=== PATIENT | male | born 1965 | race Caucasian/White ===

== ENCOUNTER 2020-09-17 07:01 | Emergency (ER) | payer OTHER ==
[2020-09-17 07:34] VITALS: TEMP 98.2; BMI 23.6
[2020-09-17] MEDS ORDERED: IBUPROFEN 400 MG TABLET (FP) PO ONE ×2 (08:12→08:14)
[2020-09-17 08:56] LABS: URINE APPEARANCE CLEAR; URINE BILIRUBIN NEGATIVE (NEGATIVE); URINE COLOR YELLOW; URINE GLUCOSE (UA) NEGATIVE (NEGATIVE); URINE KETONE NEGATIVE (NEGATIVE); URINE LEUK ESTERASE NEGATIVE (NEGATIVE); URINE NITRITE NEGATIVE (NEGATIVE); URINE PROTEIN NEGATIVE (NEGATIVE); URINE UROBILINOGEN 0.2 mg/dL (0.2-1.0)
[2020-09-17 09:19] LABS: HEMOGLOBIN 15.2 GM/dL (11.7-16.9); MCH 31.8 pg (25.7-33.7); MCHC 34.6 g/dl (32.0-35.9); MEAN CELL VOLUME 91.8 fl (80-96); MEAN PLT VOLUME 8.9 fl (7.5-11.1); PLATELET COUNT 243 10^3/uL (134-434); RBC 4.79 M/mm3 (4.00-5.60); RDW 14.2 % (11.9-15.9); WHITE BLOOD COUNT 7.3 K/mm3 (4.0-10.0)
[2020-09-17 09:41] LABS: CALCIUM 8.5 mg/dL (8.5-10.1)
[2020-09-17 09:42] LABS: BLOOD UREA NITROGEN 12.3 mg/dL (7-18)
[2020-09-17 09:45] LABS: CREATININE 0.9 mg/dL (0.55-1.3)
[2020-09-17 09:46] LABS: BILIRUBIN,TOTAL 0.6 mg/dL (0.2-1)
[2020-09-17 09:47] LABS: TOT PROT 7.5 g/dl (6.4-8.2)
[2020-09-17 12:15] VITALS: BP 100/53; PULSE 60
== END 2020-09-17 13:16 | disposition home or self-care (01) ==
LOC: JER 07:01
DX: R10.9 Unspecified abdominal pain (principal)
CPT/HCPCS: 36415; 74176-TC; 80053; 81003; 85027; 87086; 99284-25

== ENCOUNTER 2023-09-26 08:29 | Day surgery (SDC) | payer OTHER ==
[2023-09-23 15:24] VITALS: BMI 23.5
[2023-09-26] MEDS ORDERED: MIDAZOLAM HCL 2 MG/2 ML SINGLE DOSE VIAL ONE (10:13)
[2023-09-26] MEDS ORDERED: ROCURONIUM BROMIDE 50 MG/5 ML SYRINGE ONE (10:15)
[2023-09-26] MEDS ORDERED: ROPIVACAINE HCL/PF 100 MG/20 ML VIAL ONE (10:16)
[2023-09-26] MEDS ORDERED: ceFAZolin SODIUM 1 GM VIAL ONE (10:46)
[2023-09-26] MEDS ORDERED: TRANEXAMIC ACID 1000 MG/10 ML VIAL ONE (10:46)
[2023-09-26] MEDS ORDERED: KETOROLAC TROMETHAMINE 30 MG/1 ML VIAL ONE (10:46)
[2023-09-26] MEDS ORDERED: DEXAMETHASONE SOD PHOSPHATE 4 MG/1 ML VIAL ONE ×2 (10:46→10:50)
[2023-09-26] MEDS ORDERED: ONDANSETRON 4 MG/2 ML VIAL ONE (10:46)
[2023-09-26] MEDS ORDERED: VECURONIUM BROMIDE 10 MG/10 ML VIAL ONE (11:32)
[2023-09-26] MEDS ORDERED: SUGAMMADEX SODIUM 200 MG/2 ML VIAL ONE (11:45)
[2023-09-26] MEDS ORDERED: ONDANSETRON 4 MG/2 ML VIAL IVPUSH PRN (13:28)
[2023-09-26] MEDS ORDERED: PROMETHAZINE HCL 25 MG/1 ML VIAL IVPB PRN (13:28)
[2023-09-26] MEDS ORDERED: oxyCODONE HCL 5 MG TABLET PO PRN (13:28)
[2023-09-26] MEDS ORDERED: FENTANYL CITRATE/PF 50 MCG/ML VIAL ONE ×2 (13:34→13:46)
[2023-09-26] MEDS: oxyCODONE HCL 5 MG TABLET PO PRN (14:13)
[2023-09-26] MEDS: ACETAMINOPHEN 1000 MG/100 ML BAG IVPB ONE ×2 (14:21→14:22)
[2023-09-26 14:33] VITALS: RESP 18; TEMP 97.3
[2023-09-26 16:47] VITALS: BP 109/68; PULSE 71
== END 2023-09-26 16:49 | disposition home or self-care (01) ==
LOC: FASU 08:29
PROVIDERS: ATTEND Orthopaedic Surgery Sports Medicine
PROC: 0RBJ4ZZ Excision of Right Shoulder Joint, Percutaneous Endoscopic Approach (ICD-10-PCS; principal; 2023-09-26 10:59)
PROC: 0LS34ZZ Reposition Right Upper Arm Tendon, Percutaneous Endoscopic Approach (ICD-10-PCS; 2023-09-26 10:59)
PROC: 0RNJ4ZZ Release Right Shoulder Joint, Percutaneous Endoscopic Approach (ICD-10-PCS; 2023-09-26 10:59)
DX: M75.101 Unspecified rotator cuff tear or rupture of right shoulder, not specified as traumatic (principal); M75.01 Adhesive capsulitis of right shoulder; M75.21 Bicipital tendinitis, right shoulder
CPT/HCPCS: 82962; 94760; C1713; J0131

== ENCOUNTER 2024-07-06 06:47 | Emergency (ER) | payer OTHER ==
[2024-07-06 06:54] VITALS: BMI 24.3
[2024-07-06] MEDS ORDERED: ACETAMINOPHEN INJECTION 100 ML ONE (07:44)
[2024-07-06] MEDS ORDERED: ONDANSETRON 4 MG/2 ML VIAL ONE (07:44)
[2024-07-06] MEDS ORDERED: MAG HYDROX/AL HYDROX/SIMETH 30 ML UNIT-DOSE CUP ONE (07:44)
[2024-07-06] MEDS ORDERED: FAMOTIDINE 20 MG/50 ML IVPB 20 MG/50 ML MG IVPB ONE (07:44)
[2024-07-06] MEDS: ACETAMINOPHEN 1000 MG/100 ML BAG IVPB ONE (07:58)
[2024-07-06] MEDS: FAMOTIDINE 20 MG/50 ML IVPB 20 MG/50 ML MG IVPB ONE (07:58)
[2024-07-06] MEDS: MAG HYDROX/AL HYDROX/SIMETH 30 ML UNIT-DOSE CUP PO ONE (07:58)
[2024-07-06] MEDS: ONDANSETRON 4 MG/2 ML VIAL IVPUSH ONE (07:58)
[2024-07-06 08:09] LABS: ABSOLUTE IMMATURE GRANULOCYTES 0.02 x10^3/uL (0.0-0.031); BASOPHILS # 0.02 x10^3/uL (0.01-0.08); EOSINOPHIL % 1.7 % (0.8-7.0); HEMATOCRIT 46.2 % (40.1-51.0); HEMOGLOBIN 15.3 g/dL (13.7-17.5); MCHC 33.1 g/dl (32.3-36.5); MEAN CELL VOLUME 93.9 fl (79.0-92.2); MEAN PLT VOLUME 11.4 fl (9.4-12.4); MONOCYTE # 0.47 x10^3/uL (0.30-0.82); PLATELET COUNT 195 x10^3/uL (163-337); RDW 13.6 % (12.2-16.1)
[2024-07-06 08:13] LABS: PH,URINE 6.5 (5.0-8.0); URINE APPEARANCE CLEAR; URINE BILIRUBIN NEGATIVE (NEGATIVE); URINE COLOR YELLOW; URINE GLUCOSE (UA) NEGATIVE (NEGATIVE); URINE KETONE NEGATIVE (NEGATIVE); URINE LEUK ESTERASE NEGATIVE (NEGATIVE); URINE NITRITE NEGATIVE (NEGATIVE); URINE PROTEIN NEGATIVE (NEGATIVE); URINE UROBILINOGEN 0.2 mg/dL (0.2-1.0)
[2024-07-06 08:21] LABS: CHLORIDE 105 mmol/L (98-107); SODIUM 129 mmol/L (136-145)
[2024-07-06 08:23] LABS: CALCIUM 8.6 mg/dL (8.5-10.1)
[2024-07-06 08:24] LABS: ALBUMIN 3.5 g/dl (3.4-5.0); CO2 25 mmol/L (21-32); GLUCOSE,RANDOM 88 mg/dL (74-106); MAGNESIUM 2.4 mg/dL (1.8-2.4)
[2024-07-06 08:30] LABS: ALK PHOS 126 U/L (45-117); TOT PROT 8.1 g/dl (6.4-8.2)
[2024-07-06 09:16] LABS: ANION GAP 0 mmol/L (4-13); POTASSIUM > 10.0 mmol/L (3.5-5.1); SGOT/AST 157 U/L (15-37); SGPT/ALT 65 U/L (13-61)
[2024-07-06 10:12] LABS: POTASSIUM 4.8 mmol/L (3.5-5.1)
[2024-07-06 10:14] LABS: ALBUMIN 3.7 g/dl (3.4-5.0); BLOOD UREA NITROGEN 11.8 mg/dL (7-18); CALCIUM 8.9 mg/dL (8.5-10.1)
[2024-07-06 10:18] LABS: CREATININE 0.8 mg/dL (0.55-1.3)
[2024-07-06 10:19] LABS: TOT PROT 7.1 g/dl (6.4-8.2)
[2024-07-06 10:33] LABS: BILIRUBIN,TOTAL 0.7 mg/dL (0.2-1)
[2024-07-06 11:00] VITALS: BP 100/55; PULSE 56; RESP 20
[2024-07-06 11:01] VITALS: TEMP 97.8
[2024-07-06] MEDS ORDERED: KETOROLAC TROMETHAMINE 15 MG/ML VIAL ONE (11:08)
[2024-07-06] MEDS: KETOROLAC TROMETHAMINE 15 MG/ML VIAL IVPUSH ONE (11:11)
== END 2024-07-06 13:00 | disposition home or self-care (01) ==
LOC: JER 06:47
PROC: 3E033GC Introduction of Other Therapeutic Substance into Peripheral Vein, Percutaneous Approach (ICD-10-PCS; principal; 2024-07-06)
PROC: 3E033NZ Introduction of Analgesics, Hypnotics, Sedatives into Peripheral Vein, Percutaneous Approach (ICD-10-PCS; 2024-07-06)
PROC: 3E033GC Introduction of Other Therapeutic Substance into Peripheral Vein, Percutaneous Approach (ICD-10-PCS; 2024-07-06)
PROC: 3E033GC Introduction of Other Therapeutic Substance into Peripheral Vein, Percutaneous Approach (ICD-10-PCS; 2024-07-06)
DX: R10.11 Right upper quadrant pain (principal); R10.13 Epigastric pain; R11.0 Nausea; I44.0 Atrioventricular block, first degree
CPT/HCPCS: 36415; 74177-TC; 76705-TC; 80053; 81003; 83690; 83735; 84484; 85025; 87086; 93005; 93010; 99285-25; J0131; Q9967